=== PATIENT | male | born 1940 | race Native Hawaiian/Other Pacific Islander ===

== ENCOUNTER → 2016-11-12 | Outpatient (CLI) | payer MEDICARE ==
[~2016-11-12] MED LIST: ALBUTEROL0.09 MG/A2 IH; B COMPLEX1 TA3 PO; BACTRIM 400 MG-1 TAB PO; CELEBREX50 MG PO; GABAPENTIN600 MG PO; PENICILLIN-VK500 M1 PO; PROZAC20 MG PO; RESTORIL15 MG PO; SLEEPING PILL; TRAZODO50 MG PO; TRAZODONE150 MG PO; VIBRAMYCIN100 MG PO; VICODIN 5/500 505 MG PO; VICODIN HP 6601 TAB PO; VOLTAREN50 M1 PO
== END | disposition home or self-care (01) ==
LOC: US 17:52
DX: Q61.3 Polycystic kidney, unspecified (principal); R32 Unspecified urinary incontinence; R30.0 Dysuria; N28.81 Hypertrophy of kidney

== ENCOUNTER → 2016-11-29 | Outpatient (CLI) | payer MEDICARE | END | disposition home or self-care (01) | LOC: LAB 08:07 → CT 09:00 | PROVIDERS: Surgery Vascular Surgery | DX: I71.4 Abdominal aortic aneurysm, without rupture (principal); I73.9 Peripheral vascular disease, unspecified; N13.39 Other hydronephrosis ==

== ENCOUNTER 2016-12-11 12:24 | Emergency (ER) | payer MEDICARE ==
[~2016-12-11] VITALS: Wt 73.5 kg
[2016-12-11] MEDS ORDERED: PLAVIX75 M1 PO (12:35)
[2016-12-11 13:28] LABS: BASO % 0.6 % (0.0-1.0); EOS # 0.2 10*3/uL (0.0-0.4); EOS % 3.8 % (1.0-4.0); HEMATOCRIT 35.9 % (42.0-52.0); HEMOGLOBIN 11.7 g/dl (14.0-18.0); LYMPH # 1.3 10*3/uL (1.3-4.4); LYMPH % 26.2 % (27.0-41.0); MEAN CELL VOLUME 86.1 fl (80.0-94.0); MEAN CORPUSCULAR HGB 28.1 pg (27.0-31.0); MEAN CORPUSCULAR HGB CONC 32.6 g/dl (33.0-37.0); MEAN PLATELET VOLUME 10.8 fl (9.6-12.3); MONO # 0.6 10*3/uL (0.1-1.0); NEUT # 2.9 10*3/uL (2.3-7.9); PLATELET COUNT AUTOMATED 133 10*3/uL (130-400); RED BLOOD COUNT 4.17 10*6/uL (4.50-5.90); RED CELL DISTRI WIDTH 14.3 % (0-14.5)
[2016-12-11 13:42] LABS: ALBUMIN 3.3 gm/dl (3.1-4.5); BILIRUBIN, TOTAL 0.4 mg/dl (0.2-1.0); TOTAL PROTEIN 7.9 gm/dL (6.4-8.2)
== END 2016-12-11 14:48 | disposition short-term general hospital (02) ==
LOC: ED 12:24
PROVIDERS: Student in an Organized Health Care Education/Training Program
DX: I74.9 Embolism and thrombosis of unspecified artery (principal); N18.3 Chronic kidney disease, stage 3 (moderate); G62.9 Polyneuropathy, unspecified; Z79.899 Other long term (current) drug therapy

== ENCOUNTER → 2016-12-20 | Outpatient (CLI) | payer MEDICARE ==
[~2016-12-20] MED LIST changes: +PLAVIX75 M1 PO
[2016-12-20 10:40] LABS: URINE TOTAL PROTEIN CONC 6.8 mg/dL (<11.9)
[2016-12-20 10:42] LABS: URINE CREATININE TIMED 957.37 mg/24HRS (950-2490)
[2016-12-20 11:15] LABS: ALBUMIN 3.5 gm/dl (3.1-4.5); PHOSPHOROUS 2.6 mg/dL (2.5-4.9); POTASSIUM 3.6 mmol/L (3.5-5.1)
== END | disposition home or self-care (01) ==
LOC: LAB 10:01
PROVIDERS: Family Medicine
DX: N18.3 Chronic kidney disease, stage 3 (moderate) (principal)

== ENCOUNTER 2017-01-10 14:52 | Emergency (ER) | payer MEDICARE ==
[~2017-01-10] VITALS: Ht 167.6 cm; Wt 73.9 kg
[2017-01-10 15:31] LABS: BASO % 0.7 % (0.0-1.0); EOS # 0.3 10*3/uL (0.0-0.4); EOS % 7.2 % (1.0-4.0); HEMATOCRIT 37.6 % (42.0-52.0); HEMOGLOBIN 11.9 g/dl (14.0-18.0); LYMPH # 1.4 10*3/uL (1.3-4.4); LYMPH % 30.9 % (27.0-41.0); MEAN CELL VOLUME 84.5 fl (80.0-94.0); MEAN CORPUSCULAR HGB 26.7 pg (27.0-31.0); MEAN CORPUSCULAR HGB CONC 31.6 g/dl (33.0-37.0); MEAN PLATELET VOLUME 11.5 fl (9.6-12.3); MONO # 0.5 10*3/uL (0.1-1.0); NEUT # 2.2 10*3/uL (2.3-7.9); NEUT % 49.8 % (47.0-73.0); PLATELET COUNT AUTOMATED 178 10*3/uL (130-400); RED BLOOD COUNT 4.45 10*6/uL (4.50-5.90); RED CELL DISTRI WIDTH 15.9 % (0-14.5); WHITE BLOOD COUNT 4.5 10*3/uL (4.8-10.8)
[2017-01-10 15:39] LABS: PROTHROMBIN TIME 10.6 SECONDS (9.0-12.4)
[2017-01-10 15:49] LABS: ALBUMIN 3.5 gm/dl (3.1-4.5); ALKALINE PHOSPHATASE 101 U/L (45-117); BILIRUBIN, TOTAL 0.4 mg/dl (0.2-1.0); BUN 16 mg/dl (7-24); CARBON DIOXIDE 24 mmol/L (21-32); CHLORIDE 103 mmol/L (98-107); CPK 211 U/L (39-308); EST GLOM FILT AFRICAN AMERICAN 38 ml/min; GLUCOSE 110 mg/dL (65-99); LDH 231 U/L (87-241); MAGNESIUM 2.1 mg/dL (1.5-2.1); POTASSIUM 4.5 mmol/L (3.5-5.1); SGOT/AST 40 IU/L (3-35); SGPT/ALT 25 U/L (12-78); SODIUM 135 mmol/L (136-145); TOTAL PROTEIN 8.4 gm/dL (6.4-8.2)
[2017-01-10 15:50] LABS: CKMB 3.6 ng/ml (0.5-3.6)
[2017-01-10 15:54] LABS: TROPONIN I < 0.015 ng/ml (<0.045)
== END 2017-01-10 21:29 | disposition left against medical advice (07) ==
LOC: ED 14:52
PROVIDERS: Physician Assistant
DX: R55 Syncope and collapse (principal)

== ENCOUNTER → 2017-01-24 | Outpatient (CLI) | payer MEDICARE ==
[2017-01-24 12:00] LABS: INTERNATIONAL NORM RATIO 1.6 (2.0-3.5)
== END | disposition home or self-care (01) ==
LOC: LAB 10:32
PROVIDERS: Surgery
DX: I73.9 Peripheral vascular disease, unspecified (principal); Z79.01 Long term (current) use of anticoagulants

== ENCOUNTER → 2017-01-28 | Outpatient (CLI) | payer MEDICARE ==
[2017-01-28 11:25] LABS: INTERNATIONAL NORM RATIO 2.9 (2.0-3.5)
== END | disposition home or self-care (01) ==
LOC: LAB 01-27 01:28
PROVIDERS: Surgery
DX: I73.9 Peripheral vascular disease, unspecified (principal); Z79.01 Long term (current) use of anticoagulants

== ENCOUNTER → 2017-01-30 | Outpatient (CLI) | payer MEDICARE | END | disposition home or self-care (01) | LOC: LAB 11:19 | PROVIDERS: Surgery | DX: I73.9 Peripheral vascular disease, unspecified (principal); Z79.01 Long term (current) use of anticoagulants ==

== ENCOUNTER → 2017-02-03 | Outpatient (CLI) | payer MEDICARE ==
[2017-02-03 12:50] LABS: INTERNATIONAL NORM RATIO 2.9 (2.0-3.5)
== END | disposition home or self-care (01) ==
LOC: LAB 11:58
PROVIDERS: Surgery
DX: I73.9 Peripheral vascular disease, unspecified (principal); Z79.01 Long term (current) use of anticoagulants

== ENCOUNTER → 2017-02-06 | Outpatient (CLI) | payer MEDICARE ==
[2017-02-06 11:10] LABS: INTERNATIONAL NORM RATIO 3.3 (2.0-3.5)
== END | disposition home or self-care (01) ==
LOC: LAB 09:59
PROVIDERS: Surgery
DX: I73.9 Peripheral vascular disease, unspecified (principal); Z79.01 Long term (current) use of anticoagulants

== ENCOUNTER 2017-02-10 08:11 | Inpatient (IN) | payer MEDICARE ==
[2017-02-10] VITALS (12 sets, daily range): BP systolic 71–112; BP diastolic 49–65
[~2017-02-10] VITALS: Ht 167.6 cm; Wt 76.2 kg
--- NOTE | ~2017-02-10 | CON ---
[place], [place] REPORT OF CONSULTATION [id number] UNIT #: [id number] ROOM: [facility] DOCTOR: CHARIS MOREAU DO BIRTHDATE: [birth year] DOS: 02/11/2017 REASON FOR CONSULT: Right lower lobe pneumonia. CHIEF COMPLAINT: Generalized weakness. HISTORY OF PRESENT ILLNESS: This is a 76-year-old male presented to [facility] for evaluation of generalized weakness. The patient's stated that the patient passed out at home. He did have a fever of 102.3 at home on the oral thermometer and was noted to have shaking and chills. The patient denies hitting his head and yesterday patient was more drowsier than usual and seemed weaker than usual. The patient does have history of peripheral artery disease with stent placement and he is concerned about gangrene of his right toe. The patient denies any cough, vomiting, diarrhea. The patient denies any abdominal pain, chest pain or any other complaints at this time. PAST MEDICAL HISTORY: 1. Cerumen impaction. 2. Cervical disk disease. 3. Dental abscess. 4. History of Lyme disease exposure. 5. Neuropathy. 6. Insomnia. 7. History of tuberculosis. 8. History of seizures. 9. Hepatitis C virus. 7. Recurrent UTI. 8. Polycystic kidney disease. PAST SURGICAL HISTORY: History of lumbar fusion, history of laminectomy. SOCIAL HISTORY: The patient denies any drug or alcohol use. The patient was a chronic smoker, used to smoke more than 1 pack per day for more than 50 years. Currently, he quit smoking; however, he continues to use vapors. The patient lives at home with his . FAMILY HISTORY: The patient does not know family history. ALLERGIES: No known drug allergies. HOME MEDICATIONS: Voltaren 50 mg p.o. b.i.d., Prozac 20 mg p.o. daily, gabapentin 300 mg p.o. daily, Restoril 30 mg p.o. at bedtime, trazodone 150 mg p.o. at bedtime. REVIEW OF SYSTEMS: CONSTITUTIONAL: The patient denies fever, chills. Denies weight loss, weight gain. HEENT: No vision or hearing loss. CARDIOVASCULAR: No chest pain, palpitations, lower extremity edema, or diaphoresis. [place], [place] REPORT OF CONSULTATION NAME: JUN BROWNE UNIT #: [id number] ROOM: [facility] DOCTOR: CHARIS MOREAU DO BIRTHDATE: [birth year] RESPIRATORY: Mild shortness of breath, right chest wall pain with breathing. No cough or hemoptysis. ABDOMEN: Denies abdominal pain, nausea, vomiting, diarrhea, constipation, loss of appetite. GENITOURINARY: Denies dysuria, hematuria, increase or decrease in frequency. NEUROLOGIC: Denies lightheadedness, dizziness, confusion. PSYCHIATRIC: Denies depression, anxiety, substance abuse. ENDOCRINE: Denies polydipsia, heat or cold intolerance. EXTREMITIES: Denies rashes, lesions, or ulcer. PHYSICAL EXAMINATION: VITAL SIGNS: Temperature 97.8, pulse of 82, respiratory rate 16, blood pressure 100/70. HEAD: Normocephalic, atraumatic. EYES: PERRL. No lesions noted. No icterus. ENT: No scars, no masses, no lesions. NECK: No masses or lesions. Thyroid not enlarged, nontender. HEART: Regular rate and rhythm. No gallop, no murmur, no lower extremity edema. LUNGS: Good air movement; however, right lower lobe crackles both anterior and posterior noted. ABDOMEN: Soft, nontender, nondistended, positive bowel sounds. No hepatomegaly or hernia. No masses. EXTREMITIES: No cyanosis, clubbing, erythema or edema. NEUROLOGIC: Grossly intact. No focal neurologic deficits. SKIN: No rashes, ulcerations. Warm, dry, no tightening and ecchymosis. LABORATORY DATA: White cell count 4.1, hemoglobin 11.1, platelet 121. Chemistry: BUN 25, creatinine 1.76. Lactic acidosis of 3.5, calcium 7.9, albumin 2.3. Urinalysis is essentially negative. Urine legionella antigen pending. INR 4.5. IMAGING: Chest x-ray done on 02/10/2017 shows right lower lobe opacity suggesting pneumonia, underlying chronic changes and calcified granuloma. Head CT done 02/10/2017 shows no acute intracranial bleed or stroke, small vessel white matter ischemic changes. CT done 02/11/2017 shows right upper lobe and lower lobe pneumonia, COPD, bilateral pulmonary granulomas within, non-calcified, irregular 0.9 to 0.6, right upper lobe nodule is stable in size compared to last CT in 2015. ASSESSMENT AND PLAN: Please refer to dr. Newton's note for further assessment and plan. Thank you for the consult. CHARIS MOREAU DO [place], [place] REPORT OF CONSULTATION NAME: JUN BROWNE UNIT #: [id number] ROOM: [facility] DOCTOR: CHARIS MOREAU DO BIRTHDATE: [birth year] AMOS NEWTON MD CM:CONSTR:REPORT OF CONSULTATION 1250 02/11/17 1441 interface
--- NOTE | ~2017-02-10 | WRIGHTHP ---
[place], [place] PATIENT HISTORY AND PHYSICAL EXAM NAME: JUN BROWNE [facility] #: [id number] UNIT #: [id number] ROOM: [facility] DOCTOR: MINERVA LANG MD BIRTHDATE: [birth year] DOS: 02/10/2017 HISTORY OF PRESENT ILLNESS: The patient is a 76-year-old gentleman with a past medical history of: 1. Chronic back pains. He has history of degenerative joint disease and lumbar fusion in the past and laminectomy. 2. Hepatitis C. 3. Generalized seizure disorder. 4. History of tuberculosis, 5. Chronic primary insomnia. 6. Polycystic kidney disease. 7. Recurrent urinary infections. 8. Major depression. 9. Chronic primary insomnia. 10. Severe peripheral arterial disease with ischemic ulcer of the little toe of the right foot. 11. He also has a history of peripheral neuropathy. The patient presented to the Emergency Department at [facility] with generalized weakness which was progressively increasing shortness of breath, cough, fever and falls. In the ER, the patient was found to have right upper lobe pneumonia and right lower lobe pneumonic infiltrates. The patient is also complaining of significant pain on the right foot. The patient admitted to the ICU for further management. No complaints of chest pains, but he has been short of breath. No other GI or urinary symptoms. FAMILY HISTORY: Noncontributory. SOCIAL HISTORY: Denies smoking cigarettes, alcohol and drug abuse. FAMILY HISTORY: Noncontributory. ALLERGIES: No known drug allergies. HOME MEDICATIONS: Amitriptyline, Plavix, Prozac, Coumadin, gabapentin, trazodone, Voltaren, temazepam. PHYSICAL EXAMINATION: GENERAL: The patient is awake, alert and oriented, in no visible distress, not a good historian. Generalized weakness. The patient also has a gangrenous blot on the outer side a little toe of the right foot and his distal foot is cold to touch and poor pulses. HEENT AND NECK: Extraocular movements are intact. Sclerae are anicteric. Oral mucosa is moist and clean. No obvious facial weakness. Neck is supple without any lymphadenopathy. No thyromegaly. No JVD. No carotid arterial bruits. LUNGS: Clear to auscultation. No wheezing. No rhonchi. CARDIOVASCULAR SYSTEM: Heart rate is regular in rate and rhythm. S1 and S2 normally audible. No significant murmur or any other abnormal cardiac sounds. ABDOMEN: Soft, nontender. No obvious organomegaly. Bowel sounds are present. No obvious herniation. [place], [place] PATIENT HISTORY AND PHYSICAL EXAM NAME: JUN BROWNE UNIT #: [id number] ROOM: [facility] DOCTOR: MINERVA LANG MD BIRTHDATE: [birth year] EXTREMITIES: Without significant cyanosis or edema. Warm to touch. CENTRAL NERVOUS SYSTEM: Alert and oriented x 3. Cranial nerves II-XII are intact. Speech is normal. The patient is able to move all extremities. Normal muscle strength. Deep tendon reflexes are equal on both sides. Plantars were downgoing. IMPRESSION: 1. The patient with right upper and lower lung pneumonic infiltrates with shortness of breath and fever. Plan is to treat for pneumonia and Dr. Tracy, the data operations director, is following him closely in the ICU. The patient appears to be improving. 2. Severe peripheral arterial disease with poor circulation in the distal right foot and a small gangrenous spot on the outer side a little toe with severe pain is being treated with Dilaudid. Dr. Green [facility] RT by the consumer insights specialist has been consulted and will evaluate him for vascular insufficiency. 3. History of hepatitis C. 4. Some history of mental confusion, recently, apparently delirium related to pneumonia. CT of the head performed in the emergency department showed no acute changes. 5. Dehydration elevation of BUN and creatinine being treated with hydration with normal saline and BUN and creatinine improving with hydration. 6. Hypokalemia, resolved with extra potassium supplements. 7. Peripheral arterial disease with stents in both lower extremities. 8. Benign essential hypertension. We will monitor blood pressures and treat accordingly. 9. Positive for hepatitis C and liver cirrhosis. MINERVA LNAG MD CM:HISPHYS:PATIENT HISTORY AND PHYSICAL EXAMINATION 1700 14 MINERVA LANG MD 02/11/171913 interface
--- NOTE | ~2017-02-10 | CON ---
[place], [place] REPORT OF CON[facility]ULTATION [id number] UNIT #: [id number] ROOM: [facility] DOCTOR: AMOS GOTTLIEB MD BIRTHDATE: [birth year] DOS: 02/11/2017 CONSULTATION REQUESTED BY: Dr. Gaytan. REASON FOR CONSULTATION: To assess the patient possibility of acute pneumonia and other problems. The patient was seen today with [id number] encounter. The history was confirmed from the patient. Physical examination was performed. All the labs were reviewed. Assessment for this patient and the management plan and recommendations were personally done for today's visit. Note done by the medical assisting program director was approved. HISTORY OF PRESENT ILLNESS: This 76-year-old white male who has been known with history of chronic obstructive pulmonary disease as well as peripheral vascular disease. The patient brought to the hospital. The patient passed out at home yesterday. The patient was admitted to the hospital. He has been reported with findings of acute pneumonia suspected in the right lower lobe. He has been started on antibiotics yesterday, currently remains in the Intensive Care Unit. The patient denies any symptoms of chest pain, could not remember passing out spells. He denies any symptoms of hemoptysis. Denies any symptoms of coughing, wheezing or any chest pain. The patient was noted with hypotension as he was treated in the Emergency Room. He was given the intravenous fluids, 1 liter resulting in improvement in the blood pressure with 71/49-92/60. The patient was given another 100 mL of normal saline per hour for the last 24 hours as ordered. REVIEW OF SYSTEMS: CONSTITUTIONAL: Denies any symptoms of fever, chills, fatigue, tiredness, or abnormal weight loss. EYES: Denies any burning, redness, or tenderness. ENT: Denies sore throat, hoarseness, otalgia, postnasal drainage or epistaxis. GASTROINTESTINAL: Dysphagia, nausea, vomiting, diarrhea, abdominal pain, hematemesis, or melena. MUSCULOSKELETAL: Denies acute joint pain, redness, or tenderness. SKIN: Denies lesions or rashes. CENTRAL NERVOUS SYSTEM: The patient was reported symptoms of decreased sensation and her neuropathy symptoms which were described in the toe of the right foot. PAST MEDICAL HISTORY: 1. COPD with centrilobular emphysema. 2. Right upper lung pulmonary nodule 1.6 x 1 cm, which was noted negative and any abnormal uptake ____ for the patient with a PET scan, which was done in [address] scan in 11/2015, essentially with similar finding, unchanged. 3. Osteoarthritis. 4. Severe peripheral vascular disease. 5. History of anxiety and depression. 6. Past pulmonary tuberculosis. The tuberculosis history was described [place], [place] REPORT OF CONSULTATION NAME: JUN BROWNE UNIT #: [id number] ROOM: [facility] DOCTOR: AMAN BRANHAM MD,AMOS BIRTHDATE: [birth year] previously, which has been treated in 1984 as per patient. 7. Hepatitis C viral infection. SOCIAL HISTORY: The patient is . Denies any history of tobacco use or alcohol use. Does not have any children. 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 PAST SURGICAL HISTORY: 1. Open laminectomy. 2. Peripheral vascular intervention with angioplasty with possible stent insertion as described by the patient in [facility] this year for his left lower extremity vessels. FAMILY HISTORY: Unknown for both parents. MEDICATIONS: Current administered medications noted as use of amitriptyline, Plavix, Prozac, Coumadin, Neurontin, trazodone, diclofenac, Levaquin, Rocephin and other p.r.n. medications administration. DRUG ALLERGIES: NO KNOWN ALLERGIES. PHYSICAL EXAMINATION: GENERAL: A 76-year-old white male currently noted awake and alert without any distress. Height of 5 feet 6 inches, weight of 168 pounds, BMI 27.1. VITAL SIGNS: The patient shows a normal temperature, respiratory recorded as 18-20, heart rate of 76-75, blood pressure lowest of 71 and 49 on admission and currently noted with blood pressure 100/70. Intake for the patient was 2490, output 1750 mL. Pulse oxygen saturation on 2 liters nasal cannula was noted 95% saturation and admission saturation noted 92% on 3 liters. HEENT: Head was atraumatic. Eyes nonicterus. NECK: Supple. Oral mucosa was moist. CARDIOVASCULAR: S1, S2 audible. LUNGS: The patient was noted with crackles of the lungs. The patient noted anteriorly and laterally in the right lower lung. Mild to moderate decreased breath sounds noted in the lungs bilaterally. ABDOMEN: Soft, nontender. EXTREMITIES: Does not show any abnormal skin changes. There was no edema, clubbing or cyanosis. NEUROLOGIC: Cranial nerves 2-12 intact. No focal deficit. MUSCULOSKELETAL: Does not show any acute deformities. LABORATORY DATA: INR for the patient noted on 02/06/2017 on outpatient, 3.3. Hepatitis C antibodies was noted elevated as well. CBC of the patient that were done on 02/10/2017, WBC count 4.1, hemoglobin 11.1, hematocrit 36.1, platelet count 121,000. Lactic acid noted at 3.4 yesterday. PT/PTT of patient noted as INR 4.5, PTT 42 yesterday on admission. CMP on admission, BUN 22, creatinine 2.46, glucose 100, potassium of 3.2. The ESR yesterday noted as 5.0. The urinalysis was noted to be benign. CT scan of the head, which was done on 02/10/2017 reported as no acute intracranial abnormalities. CBC of this morning: WBC count were normal. Hemoglobin 8.8, hematocrit 28.9, platelet [place], [place] REPORT OF CONSULTATION NAME: JUN BROWNE UNIT #: [id number] ROOM: [facility] DOCTOR: PORSCHE GOTTLIEB MDM BIRTHDATE: [birth year] count of 97,000. CMP this morning, BUN 25, creatinine 1.76. Glucose 108. Albumin was 2.3. The chest x-ray that was done for the patient, one view, in the Emergency Room was reviewed, shows possibility of consolidation in the right lower lobe as well as opacification of the right lung for the patient was also noted changes of COPD. IMPRESSION: 1. The patient who has been currently admitted to the hospital with finding of acute sepsis as well as pneumonia, possibility of aspiration pneumonia would be considered. 2. Opacity of the right upper lung, whether pneumonia or other at this time unknown. 3. History of previous solitary pulmonary nodule, stable with a past PET scan and CT scan of the chest. The last CT scan of the chest was done in November 2015. 4. Severe peripheral vascular disease. The patient was described as not noted amenable for bypass grafting surgery and previous angioplasty, although the intervention has not been noted very effective. 5. The patient with history of nicotine dependence, previously as well as chronic obstructive pulmonary disease. 6. 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 7. Acute kidney injury. The patient most likely secondary to acute sepsis and intravascular volume depletion resulting in syncope. PLAN OF MANAGEMENT: At this time, the patient will be continued with current antibiotics. Continuous intravenous fluids. Monitor kidney function, which has been improving with current medical management. Obtain CT scan of the chest for the patient without contrast for further delineation of the current pulmonary problem and to assess the right upper lobe pulmonary nodule and addition problem which is noted in the right upper lobe. Tobacco cessation would be encouraged. Bronchodilator will be continued as well. Other supportive therapy, plan of management and care. Usual medical management therapy, plan of care for this patient as well. The addition note of consultation, which were done by the medical assisting program director for this patient was personally approved. Monitoring results of the cultures of the sputum for this patient, which has been ordered. Blood culture will be monitored as well. Supportive therapy, plan of management, other care and treatments. Thanks for allowing me to participate in the care of this patient. [place], [place] REPORT OF CONSULTATION NAME: JUN BROWNE Niko UNIT #: [id number] ROOM: [facility] DOCTOR: AMOS GOTTLIEB MD BIRTHDATE: [birth year] AMOS NEWTON MD CM:CONSTR:REPORT OF CONSULTATION 1426 02/12/17 0530 interface
--- NOTE | ~2017-02-10 | EKG ---
[place], [place] ELECTROCARDIOGRAM REPORT NAME: JUN BROWNE UNIT #: [id number] ROOM: [facility] DOCTOR: AMAN BRANHAM MD,AMOS BIRTHDATE: [birth year] DOS: 02/11/2017 TIME: 825. Normal sinus rhythm was noted with heart rate of 74 beats per minute. Nonspecific ST-T changes are noted. There were no cardiac arrhythmias or other abnormalities. AMOS NEWTON MD CM:EKGRPT:ELECTROCARDIOGRAM REPORT [id number] AMOS BRANHAM MD
--- NOTE | ~2017-02-10 | CON ---
[place], [place] REPORT OF CONSULTATION NAME: JUN BROWNE UNIT #: [id number] ROOM: [facility] DOCTOR: [facility] BIRTHDATE: [birth year] DOS: 02/11/2017 I talked the patient and also the family. Dr. Payne ____ for vascular intervention since ischemic limb right lower extremity below the knee and both the pedal and posterior tibial pulses are down and marked diminished perfusion on the right lower extremity with wound on the right fifth ray or toe. Apparently, ____ could not get any perfusion through, so he was started on Coumadin. INR is more than 4 on 8 a.m. and we are repeating the INR, may start on heparin drip. The patient's hemoglobin is 8.8 and given iron sulfate and monitoring that closely. The patient is already on Plavix. The platelets are borderline and we are going to monitor that too carefully. The patient also has severe pain in the right lower extremity. The patient's pneumonia on the right upper and right lower lobe, on multiple antibiotics. The bin filler also seeing the patient. We will have the same bin filler, ____, follow the patient, Dr. Barraza also. The patient has stents ____ below the knee according to the patient and the spouse and I talked to spouse at length, could communicate better. The patient also has generalized weakness and the patient has generalized malaise. The patient's CT of the chest also shows right upper and lower lobe pneumonia, on antibiotics and severe peripheral arterial disease, ____ stent placement also, could not get surgery done because of the not enough distal target vessels for the bypass, under just permanent anticoagulation. If we do the angiogram and intervention, this is a more of salvage procedure. The patient and the spouse is aware of the potential for possible amputation if we are not able to salvage because of no other option available to save the lower extremity. The case was discussed at length with Dr. Payne also. ____ approach, we will do the aortobifemoral angio with runoff and ____ if anything we can salvage to improve the perfusion on the right lower extremity below the knee. The patient has a history of tuberculosis in the past, not active and history of seizure, hepatitis C, history of recurrent UTI and polycystic kidney. Creatinine is 1.7. He appears to have a chronic kidney disease, probably stage 4. We will have the media account executive also follow the patient because of the contrast involvement. No significant family history noted. Denies any chest discomfort and no syncope, presyncope. The patient has some exertional dyspnea. No hemoptysis. No abdominal pain. The patient has renal insufficiency. No focal neurological deficit. PHYSICAL EXAMINATION: VITAL SIGNS: Blood pressure 100/70. HEENT: ____. LUNGS: Diminished breath sounds at bases. HEART: S1 and S2 regular. No gallops heard. ABDOMEN: Soft. EXTREMITIES: Color is good, not diaphoretic. Discoloration of the right lower extremity. ____. No posterior tibial and dorsalis ____ left side, able to feel the posterior tibial and dorsalis on the right side ____. ASSESSMENT: Ischemic limb. The patient is for limb salvage procedure. [place], [place] REPORT OF CONSULTATION NAME: JUN BROWNE UNIT #: [id number] ROOM: [facility] DOCTOR[facility] BIRTHDATE: [birth year] PLAN, EVALUATION AND MANAGEMENT: I discussed with Dr. Payne and advised the patient and the spouse and the potential that the patient may need amputation depending upon how far we can get perfusion below the knee or above the knee. PROGNOSIS: Guarded. Potential loss of lower extremity, either BKA or AKA. RIKKI VAUGHN MD CM:CONSTR:REPORT OF CONSULTATION 1730 02/13/17 0945 interface SHERMAN PAYNE DPM, MINERVA LANG MD and WENCESLAO BELCHER MD
--- NOTE | ~2017-02-10 | CON ---
[place], [place] REPORT OF CONSULTATION NAME: [facility]NE [id number] UNIT #: [id number] ROOM: [facility] DOCTOR: SHERMAN PAYNE DPM BIRTHDATE: [birth year] DOS: 02/11/2017 SUBJECTIVE: The patient presents a 76-year-old male for followup of painful right foot and ulcer of the fifth right toe. PAST MEDICAL HISTORY: The patient has a past medical history of liver disease, kidney disease, circulation, PVD, bladder difficulties. PAST SURGICAL HISTORY: Back surgery, fusion, laminectomy, vascular procedures. ALLERGIES: No known allergies. PHYSICAL EXAMINATION: EXTREMITIES: Lower extremity examination: Pedal pulses are barely palpable bilateral. Capillary fill time decreased to all digits, bilateral foot. Skin temperature warm to cold from tibial tuberosity, all digits bilateral. Skin is thin and shiny, no hair growth either foot. There is an ulceration to the lateral fifth right toe measuring approximately 0.8 cm in diameter, is necrotic in nature. There is no erythema, no tunneling or signs of infection. ASSESSMENT: Peripheral vascular disease, ulceration, fifth right toe. PLAN, EVALUATION AND MANAGEMENT: Ordered arterial Doppler, bilateral lower extremity. Also consulted Dr. Green for vascular consultation. The patient has had numerous vascular procedures previously, but I would like to get Dr. Green's opinion for possible further vascular intervention to prevent full necrosis and gangrenous changes to the fifth right toe. Ordered Bactroban and gauze dressing daily to prevent infection. The patient will be seen tomorrow for followup. SHERMAN PAYNE DPM CM:CONSTR:REPORT OF CONSULTATION 1321 02/12/17 0005 interface
[2017-02-10 08:40] LABS: BASO % 0.2 % (0.0-1.0); EOS % 0.5 % (1.0-4.0); HEMATOCRIT 36.1 % (42.0-52.0); HEMOGLOBIN 11.1 g/dl (14.0-18.0); LYMPH # 0.4 10*3/uL (1.3-4.4); LYMPH % 10.6 % (27.0-41.0); MEAN CELL VOLUME 86.6 fl (80.0-94.0); MEAN CORPUSCULAR HGB 26.6 pg (27.0-31.0); MEAN CORPUSCULAR HGB CONC 30.7 g/dl (33.0-37.0); MEAN PLATELET VOLUME 10.2 fl (9.6-12.3); MONO # 0.2 10*3/uL (0.1-1.0); MONO % 5.1 % (3.0-9.0); NEUT # 3.5 10*3/uL (2.3-7.9); NEUT % 83.4 % (47.0-73.0); PLATELET COUNT AUTOMATED 121 10*3/uL (130-400); RED BLOOD COUNT 4.17 10*6/uL (4.50-5.90); RED CELL DISTRI WIDTH 17.8 % (0-14.5); WHITE BLOOD COUNT 4.1 10*3/uL (4.8-10.8)
[2017-02-10 08:54] LABS: ACT PARTIAL THROMBO TIME 42.7 SECONDS (20.8-31.5); INTERNATIONAL NORM RATIO 4.5 (2.0-3.5)
--- NOTE | 2017-02-10 08:55 | NUR ---
PATIENT TO CT VIA CART
[2017-02-10 08:56] LABS: CKMB 0.9 ng/ml (0.5-3.6); CREATININE 2.46 mg/dL (0.70-1.30); MAGNESIUM 1.9 mg/dL (1.5-2.1); POTASSIUM 3.2 mmol/L (3.5-5.1); TOTAL PROTEIN 6.8 gm/dL (6.4-8.2); TROPONIN I 0.018 ng/ml (<0.045)
--- NOTE | 2017-02-10 09:10 | NUR ---
URINE OBTAIN AND SENT TO LAB
[2017-02-10 09:29] LABS: BILIRUBIN NEGATIVE (NEGATIVE); BLOOD TRACE-INTACT (NEGATIVE); CLARITY CLEAR (CLEAR); COLOR YELLOW (YELLOW); GLUCOSE NEGATIVE (NEGATIVE); KETONE NEGATIVE (NEGATIVE); LEUKO ESTERASE NEGATIVE (NEGATIVE); NITRITE NEGATIVE (NEGATIVE); UROBILINOGEN 0.2 E.U./dl (0.2-1.0)
--- NOTE | 2017-02-10 09:30 | NUR ---
IV INFUSING A BOLUS. STILL HYPOTENSIVE
[2017-02-10 09:41] LABS: EPITHELIAL CELLS 0-2
--- NOTE | 2017-02-10 11:10 | NUR ---
A 76, admitted to [facility]U, under the services of Dr. PRECIOUS CHAVARRIA,MINERVA Yin with a diagnosis of METABOLIC ENCEPHOLOPATHY. Chief complaint is WEAKNESS/FELL AT HOME. Patient arrived via stretcher from ER. Monitor applied. Initial assessment completed. Vital signs taken and recorded. DR. PRECIOUS CHAVARRIA,MINERVA Yin notified of admission to the unit. Orders received. See assessment for past medical history, medications and allergies. Patient and/or family oriented to unit. [facility] visitation policy reviewed. Clothing/patient valuable form completed. LAUREANO JORGENSEN
[2017-02-10] MEDS ORDERED: VICODIN 5-3001 EACH PO (11:52)
[2017-02-10] MEDS ORDERED: COUMADIN2.5 MG PO (11:53)
[2017-02-10] MEDS ORDERED: AMITRIPTYLINE25 MG PO (11:54)
[2017-02-10] MEDS ORDERED: NEURONTIN300 MG PO (11:54)
[2017-02-10] MEDS ORDERED: REMERON30 M1 PO (11:55)
[2017-02-10] MEDS ORDERED: AMBIEN10 M1 JT (11:55)
[2017-02-10] MEDS ORDERED: RESTORIL30 M1 PO (12:47)
--- NOTE | 2017-02-10 13:43 | NUR ---
DR. PAYNE'S OFFICE NOTIFIED OF CONSULT. WILL SEE IN AM.
--- NOTE | 2017-02-10 14:30 | NUR ---
BROWNEJUN Niko [id number] Please refer to the physician's history and physical for past medical history, comorbid conditions, and allergies. Diagnosis: METABOLIC ENCEPHALOPATHY, PNEUMONIA, DEHYDRATION Erik Score: 19,LOW OR NO RISK WOUND DESCRIPTIONS: Location of the wound: right 5th toe Type of wound: unstageable Thickness: Full Size: 0.9cm x 0.6cm x <0.1cm Tunneling: none Undermining: none Sinus Tract: none Presence of Exudate: none Amount: None Color: Brown Odor: None Periwound Skin Appearance: Normal Wound edges: closed Pain (associated with wound): tender to touch pt states that what is causing all his pain How does patient state this happened? pt stated it happen last week when his shoes were rubbing after takin a hike. Surface the patient is resting on: Position Pro SKIN PREVENTION RECOMMENDATION: 1. Pressure redistribution support surface as appropriate 2. Elevate heels 3. Remove boots/TEDS every shift and reapply 4. Head of bed 30 degrees as tolerated 5. Assess nutrition and hydration 6. Manage moisture 7. Avoid the use of containment devices while in bed 8. Use absorptive products on surfaces limit layers of linens on bed 9. Turn and reposition every 1-2 hours in bed and every 1 hour in chair as tolerated 10. Weight shifts every 15 minutes while up in chair 11. Offloading with pillows or device to keep heels elevated off bed 12. Monitor skin at least every shift 13. Inspect under medical devices twice a day WOUND TREATMENT RECOMMENDATIONS: Unstageable guideline. Consult podiatry possible debridement of right 5th toe.
--- NOTE | 2017-02-10 15:38 | NUR ---
DOCUMENTED THE WOUND TO THE TOE THE LEFT AND ACTUALLY IT IS THE RIGHT PINKY TOE.
--- NOTE | 2017-02-10 15:41 | NUR ---
Shift chart check completed.24 HR chart check completed.
--- NOTE | 2017-02-10 17:45 | NUR ---
ON ASSESSMENT PATIENT WAS RESTING QUIETLY WATCHING TV. UNABLE TO GIVE A SPUTUM SPECIMEN SO RESPIRATORY THERAPY HERE TO TRY HYPERTONIC SALINE INDUCTION FOR SPUTUM. IV FLUIDS CONTINUE, POSITIONAL IN HIS LEFT ARM. NO ACUTE DISTRESS. JESSICA NEWTON AND ANA WERE NOTIFIED OF CONSULTS BY PREVIOUS SHIFT NURSE. SEE ALL APPROPRIATE INTERVENTIONS.
--- NOTE | 2017-02-10 17:55 | NUR ---
COX MONETTCO FOR RT FOOT PAIN ".
--- NOTE | 2017-02-10 18:09 | NUR ---
PT UNABLE TO GIVE A SPUTUM AFTER A DUONEB AND HYPERTONIC SALINE RX. CUP AT THE BEDSIDE SHOULD HE COUGH PRODUCTIVELY LATER.
--- NOTE | 2017-02-10 19:14 | NUR ---
EARLIER RAJINDERCO "NOT HELPING AT ALL". ASKING FOR A "SHOT IN MY FOOT".
--- NOTE | 2017-02-10 19:18 | NUR ---
ATTEMPTED TO CALL DR LANG FOR SOMETHING ELSE FOR PAIN. VOICEMAIL MESSAGE SAYS TO TRY AGAIN LATER.
--- NOTE | 2017-02-10 19:24 | NUR ---
DR LANG CALLED BACK AND ORDERS RECEIVED.
--- NOTE | 2017-02-10 20:10 | NUR ---
1952 PT MEDICATED WITH DIALUDID 1MG IV FOR CONT C/O'S PAIN R FOOT. RATES PAIN AN"8". PT IS ALERT AND ORIENTED. IV FLUIDS CONT. 02 INTACT. PULSE OX 93% ON 2L 02 VIA NC. HOB ELEVATED. SIDE RAILS UP X'S 2. CALL LIGHT IN REACH. EARLIER PAIN MED EFFECTIVE. WILL CONT TO MONITOR.
--- NOTE | 2017-02-10 22:06 | NUR ---
2130 RESTING IN BED WATCHING TV. GIVEN ROUTINE RESTORIL AND DESYREL FOR SLEEP. WILL MONITOR.
[2017-02-11] VITALS: BP 96/52
--- NOTE | 2017-02-11 00:21 | NUR ---
EARLIER MEDS EFFECTIVE. RESTING IN BED WITH EYES CLOSED. APPEARS TO BE SLEEPING.
[2017-02-11 04:00] VITALS: BP 96/50
--- NOTE | 2017-02-11 04:17 | NUR ---
BLOOD PRESSURE READS LOW ON AUTOMATIC CUFF. BP IS 96/50 MANUALLY. PT IS WARM AND DRY.
[2017-02-11 04:51] LABS: MEAN CELL VOLUME 87.3 fl (80.0-94.0); MEAN CORPUSCULAR HGB 26.6 pg (27.0-31.0); MEAN CORPUSCULAR HGB CONC 30.4 g/dl (33.0-37.0); MEAN PLATELET VOLUME 10.9 fl (9.6-12.3); PLATELET COUNT AUTOMATED 97 10*3/uL (130-400); RED BLOOD COUNT 3.31 10*6/uL (4.50-5.90); RED CELL DISTRI WIDTH 17.9 % (0-14.5); WHITE BLOOD COUNT 9.7 10*3/uL (4.8-10.8)
[2017-02-11 04:57] LABS: HEMATOCRIT 28.9 % (42.0-52.0); HEMOGLOBIN 8.8 g/dl (14.0-18.0)
[2017-02-11 05:10] LABS: ALBUMIN 2.3 gm/dl (3.1-4.5); CREATININE 1.76 mg/dL (0.70-1.30)
[2017-02-11 05:12] LABS: TOTAL PROTEIN 5.7 gm/dL (6.4-8.2)
[2017-02-11 05:16] LABS: MICROCYTOSIS SLIGHT; PLATELET SUFFICIENCY LOW (NORMAL); TOTAL CELLS COUNTED 100 #CELLS
[2017-02-11 05:17] LABS: POTASSIUM 4.3 mmol/L (3.5-5.1)
--- NOTE | 2017-02-11 06:09 | NUR ---
SLEEPING WITHOUT DISTRESS. IV FLUIDS CONT. NO DISTRESS NOTED. CONDITION GUARDED.
--- NOTE | 2017-02-11 07:11 | NUR ---
DILAUDID 1MG IV FOR C/O'S SEVERE PAIN R FOOT. WILL MONITOR.
[2017-02-11 08:00] VITALS: BP 100/70
--- NOTE | 2017-02-11 08:16 | NUR ---
ON ASSESSMENT PATIENT IS ALERT AND ORIENTED. EARLIER DILAUDID BY PREVIOUS SHIFT IS "HELPING" HIS RT FOOT PAIN WHICH HE DESCRIBES "SHARP". SPUTUM SPECIMEN SENT TO THE LAB. THICK GARCIA-YELLOW, SLIGHTLY BLOOD TINGED. IV FLUIDS CONTINUE. THE RIGHT FOOT IS DARKER IN COLOR THAN THE LEFT, VERY FAINT PEDAL PULSE. SEE ALL APPROPRIATE INTERVENTIONS.
--- NOTE | 2017-02-11 08:30 | NUR ---
Material Mixer in to talk to patient. Patient states lives at [address] with HIS EX . There are 12 steps in the home. Physician: DR BELCHER Pharmacy: [facility] services: NONE Patient's level of ADLs: INDEPENDENT Patient has working utilities: YES DME: [employer] Follow-up physician's appointment after d/c: PREFERS TO MAKE HIS OWN APPT Does patient want to access PORTAL?: Discharge plan PT AGREES TO SNF STAY. CHOOSES [facility] SUITES [facility]ICE AND [facility]. DC CAKE MIXER WILL MAKE REFERRA. TAVO IVEY
--- NOTE | 2017-02-11 09:48 | NUR ---
DR NEWTON HAS BEEN IN TO VISIT. CT CHEST ORDERED. PT UPDATED ON PLAN OF CARE.
[2017-02-11 12:00] VITALS: BP 105/67
--- NOTE | 2017-02-11 12:12 | NUR ---
PT ACCOMPANIED TO CT SCAN AND BACK.
--- NOTE | 2017-02-11 12:20 | NUR ---
MEDICATED WITH DILAUDID FOR PAIN IN HIS RIGHT LITTLE TOE. DR PAYNE HAS BEEN IN TO SEE THE PATIENT.
--- NOTE | 2017-02-11 13:13 | NUR ---
DR VAUGHN NOTIFIED OF CONSULTATION. I AM TO CALL HIM WITH ARTERIAL DOPPLER RESULTS. DILAUDID HELPING HIS PAIN.
--- NOTE | 2017-02-11 13:17 | NUR ---
PHYSICAL THERAPY PAtient evaluated in ICCU, full evaluation to follow. Continue with PT as per plan of care with fall, wound right LE and 02 precautions. Significant acute debility- may require SNF in order to return to home at (i) PLOF. PAtient is high complexity via chart review, tests and evaluation: 46791. Thank you for this referral. Karen Toussaint,PT
--- NOTE | 2017-02-11 13:21 | NUR ---
OT EVALUATION COMPLETED AT BS. MOD COMPLEXITY DETERMINED BY CHART REVIEW AND EVALUATION.
--- NOTE | 2017-02-11 15:17 | NUR ---
PT TO RADIOLOGY VIA W/C FOR ARTERIAL DOPPLER STUDIES.
[2017-02-11 16:00] VITALS: BP 128/71
--- NOTE | 2017-02-11 16:15 | NUR ---
DR LANG HAS VISITED.
--- NOTE | 2017-02-11 16:15 | NUR ---
PT HAS RETURNED FROM RADIOLOGY,COMFORTABLE IN THE BED AT THIS TIME.
[2017-02-11 17:34] LABS: HEMATOCRIT 31.2 % (42.0-52.0); HEMOGLOBIN 9.5 g/dl (14.0-18.0); MEAN CELL VOLUME 88.4 fl (80.0-94.0); MEAN CORPUSCULAR HGB 26.9 pg (27.0-31.0); MEAN CORPUSCULAR HGB CONC 30.4 g/dl (33.0-37.0); MEAN PLATELET VOLUME 10.6 fl (9.6-12.3); PLATELET COUNT AUTOMATED 109 10*3/uL (130-400); RED BLOOD COUNT 3.53 10*6/uL (4.50-5.90); RED CELL DISTRI WIDTH 17.9 % (0-14.5); WHITE BLOOD COUNT 10.4 10*3/uL (4.8-10.8)
[2017-02-11 17:44] LABS: ACT PARTIAL THROMBO TIME 55.4 SECONDS (20.8-31.5); INTERNATIONAL NORM RATIO 3.8 (2.0-3.5)
[2017-02-11 18:06] LABS: BURR CELLS FEW; PLATELET SUFFICIENCY LOW (NORMAL); TOTAL CELLS COUNTED 100 #CELLS
--- NOTE | 2017-02-11 18:25 | NUR ---
DR VAUGHN NOTIFIED OF STAT LABS AND ARTERIAL DOPPLERS. ORDERS RECEIVED.
--- NOTE | 2017-02-11 18:41 | NUR ---
DR LANG NOTIFIED OF DR VAUGHN'S PLAN FOR TRANSFER TO [facility] IN THE AM.
--- NOTE | 2017-02-11 19:34 | NUR ---
TALKED WITH PT AND HIS SIGNIFICANT OTHER (OVER THE PHONE) ABOUT PLAN OF CARE. SUBQ VITAMIN K 10MG AND ORAL VITAMIN K 10MG PER ORDER.
--- NOTE | 2017-02-11 19:46 | NUR ---
SAVANNAH FROM [facility] CALLED WITH BED ASSIGNMENT. WILL GO TO [address] BED 2. NUMBER FOR REPORT [phone].
[2017-02-11 20:07] VITALS: BP 119/68
--- NOTE | 2017-02-11 20:22 | NUR ---
DILAUDID 1MG IV FOR RT FOOT PAIN ".
[2017-02-11] MEDS ORDERED: LEVOFLOXAC750 MG/150 IV (20:41)
[2017-02-11] MEDS ORDERED: DUONEB 3 MG/3 ML3 M1 INH (20:42)
[2017-02-11] MEDS ORDERED: CEFTRIAXON1 GM/50 ML IV (20:43)
[2017-02-11] MEDS ORDERED: FEOSOL325 MG PO (20:44)
[2017-02-11] MEDS ORDERED: DILAUDID IV (20:45)
[2017-02-11] MEDS ORDERED: Bactroban Oint22 GM T (20:49)
--- NOTE | 2017-02-11 23:18 | NUR ---
EARLIER DILAUDID EFFECTIVE. ROUTINE HS MEDS GIVEN. VITAMIN K 10MG SQ AND PO REPEATED PER ORDER.
[2017-02-12 00:06] VITALS: BP 116/47
--- NOTE | 2017-02-12 00:24 | NUR ---
RESTING IN BED WITH EYES CLOSED. APPEARS TO BE SLEEPING. IV FLUIDS CONT. HEP LOCK INTACT. PULSE OX 96% WITH 02 INTACT. BAEZ PATENT AND DRAINING CLEAR CONNER URINE. NO DISTRESS NOTED.
[2017-02-12 04:00] VITALS: BP 110/70
--- NOTE | 2017-02-12 04:11 | NUR ---
REMAINS SLEEPING WIHTOUT DISTRESS. NPO.
--- NOTE | 2017-02-12 04:50 | NUR ---
PT AWAKE. DISCHARGE PAPERS SIGNED. DISCHARGE WOUND PHOTO TAKEN.
--- NOTE | 2017-02-12 05:16 | NUR ---
DISCHARGED TO [facility] VIA [facility]. REPORT GIVEN. PT IS ALERT. NO C/O'S VOICED. REPORT CALLED TO [facility]. NESTOR PATENT. CONDITION GUARDED.
== END 2017-02-12 05:16 | disposition short-term general hospital (02) | DRG 871 ==
LOC: ED 08:11 → EDHOLD 10:25 → ICCU 10:25
PROVIDERS: Emergency Medicine; Internal Medicine Cardiovascular Disease; Internal Medicine Critical Care Medicine; ADMIT Internal Medicine
DX: A41.9 Sepsis, unspecified organism (principal); G93.41 Metabolic encephalopathy; N17.9 Acute kidney failure, unspecified; I96 Gangrene, not elsewhere classified; N18.3 Chronic kidney disease, stage 3 (moderate); J18.1 Lobar pneumonia, unspecified organism; K74.60 Unspecified cirrhosis of liver; E86.0 Dehydration; G89.29 Other chronic pain; M54.9 Dorsalgia, unspecified; F32.9 Major depressive disorder, single episode, unspecified; F51.04 Psychophysiologic insomnia; E87.6 Hypokalemia; I12.9 Hypertensive chronic kidney disease with stage 1 through stage 4 chronic kidney disease, or unspecified chronic kidney disease; B19.20 Unspecified viral hepatitis C without hepatic coma; J43.2 Centrilobular emphysema; M19.90 Unspecified osteoarthritis, unspecified site; L97.519 Non-pressure chronic ulcer of other part of right foot with unspecified severity; G40.409 Other generalized epilepsy and epileptic syndromes, not intractable, without status epilepticus; Z87.440 Personal history of urinary (tract) infections; Z79.2 Long term (current) use of antibiotics; Z79.01 Long term (current) use of anticoagulants; Z79.899 Other long term (current) drug therapy; Z86.11 Personal history of tuberculosis; Z87.891 Personal history of nicotine dependence